=== PATIENT | male | born 1975 | race Caucasian/White ===

== ENCOUNTER 2018-10-25 10:48 | Emergency (ER) | payer OTHER ==
[~2018-10-25] VITALS: Ht 177.8 cm; Wt 108.9 kg
[2018-10-25 11:13] LABS: ABSOLUTE NEUTROPHILS 7.1 thou/uL (1.4-8.2); BASOPHILS 1.2 % (0.0-2.0); EOSINOPHILS 2.6 % (0.0-3.0); HEMATOCRIT 53.2 % (42.0-52.0); HEMOGLOBIN 18.8 gm/dL (14.0-18.0); LYMPHOCYTES 22.8 % (24.0-44.0); MCH 33.9 pg (26.0-34.0); MCHC 35.3 g/dL (28.0-37.0); MCV 95.9 fL (80.0-100.0); PLATELET COUNT 178 thou/uL (150-400); POLYS 66.4 % (36.0-66.0); RBC 5.54 mil/uL (4.50-6.00); RDW 13.5 % (10.5-14.5); WBC 10.6 thou/uL (4.0-11.0)
[2018-10-25 11:24] LABS: ANION GAP 11 mmol/L (7-16); BUN 8 mg/dL (7-18); CALCIUM 8.4 mg/dL (8.5-10.1); CHLORIDE 97 mmol/L (98-107); CO2 26 mmol/L (21-32); CREATININE 1.1 mg/dL (0.7-1.3); GLUCOSE 144 mg/dL (74-106); POTASSIUM 3.8 mmol/L (3.5-5.1); SODIUM 134 mmol/L (136-145)
[2018-10-25 11:33] LABS: MAGNESIUM 1.8 mg/dL (1.8-2.4); SGPT 70 U/L (30-65); TOTAL PROTEIN 7.4 g/dL (6.4-8.2); TROPONIN-I <0.06 ng/mL (<0.06)
[2018-10-25 11:59] LABS: SGOT 58 U/L (15-37)
[2018-10-25 12:09] LABS: URINE BILIRUBIN NEGATIVE (Negative); URINE BLOOD TRACE (Negative); URINE CLARITY CLEAR; URINE COLOR YELLOW; URINE GLUCOSE-RANDOM* NEGATIVE (Negative); URINE KETONES NEGATIVE (Negative); URINE NITRITE-REFLEX NEGATIVE (Negative); URINE PROTEIN (DIPSTICK) NEGATIVE (Negative); URINE SPECIFIC GRAVITY <= 1.005 (1.005-1.035); URINE UROBILINOGEN 0.2 E.U./dl (0.2-1.0)
[2018-10-25 12:10] LABS: URINE LEUKOCYTES-REFLEX 1+ (Negative)
[2018-10-25 12:11] LABS: AMP/METHAMP Negative (Negative); BARBITURATES Negative (Negative); BENZODIAZEPINES Negative (Negative); COCAINE Negative (Negative); METHADONE Negative (Negative); OPIATES Negative (Negative); PCP Negative (Negative)
[2018-10-25 12:28] LABS: BACTERIA-REFLEX None Seen /HPF (None Seen); CASTS None Seen /LPF (None Seen); CRYSTALS None Seen /LPF (None Seen); SQUAMOUS None Seen /LPF (0-3); URINE RBC None Seen /HPF (0-2); URINE WBC-REFLEX 0-5 Rare /HPF (0-5)
[2018-10-25 12:34] LABS: ANISOCYTOSIS SLIGHT
[2018-10-25] MEDS ORDERED: CLONIDINE0.1 PO (12:39)
[2018-10-25] MEDS ORDERED: LISINOPRIL20 MG PO (12:39)
[2018-10-25 12:42] VITALS: BP 169/106
--- NOTE | 2018-10-26 13:43 | EKG ---
[facility] [employer] [place] [address] ELECTROCARDIOGRAM REPORT Name: MACISARA GALLARDO Room #: [facility]P [id number] ������������������ Admission: 10/25/18 ������������������ Attend Phys: Discharge: 10/25/18 ������������������ Date of : 71 Report #: [id number] ����������������������������������������������������������������� [id number] THIS REPORT FOR: //name// [facility] ED Test Date: 2018-10-25 Test Time: 11:04:25 Pat Name: SARA LUX Department: Room: Gender: M [employer]: [place] : 1975 Requested By: Prabhjot Reina Order Number: [id number] MD: Tha Quesada Measurements Intervals [place] Rate: 88 P: 47 TN: 156 QRS: -4 QRSD: 111 T: 19 QT: 389 QTc: 471 Interpretive Statements Sinus rhythm Ventricular premature complex Anteroseptal infarct, old Baseline wander in lead(s) II,III,aVF No previous ECG available for comparison Electronically Signed On 10-26-2018 13:43:22 CDT by Tha Quesada [email or web address] ��������������������������������������������� <ELECTRONICALLY SIGNED> ���������������������������������������� By: Tha Quesada MD, [facility] ��������������������������������������������� 10/26/18 1343 1104 1104 Tha Quesada MD, [facility] /EPI
== END 2018-10-25 12:42 | disposition home or self-care (01) ==
LOC: ER 10:48
PROVIDERS: Emergency Medicine
DX: I10 Essential (primary) hypertension (principal); R42 Dizziness and giddiness; E03.9 Hypothyroidism, unspecified; Z91.14 Patient's other noncompliance with medication regimen; D75.1 Secondary polycythemia; F17.210 Nicotine dependence, cigarettes, uncomplicated

== ENCOUNTER → 2020-09-01 | Outpatient (CLI) | payer OTHER ==
[~2020-09-01] MED LIST: CLONIDINE0.1 PO; LISINOPRIL20 MG PO
== END ==
LOC: SJCVCIMAG 08:44
PROVIDERS: ATTEND Internal Medicine
DX: I49.1 Atrial premature depolarization (principal); R00.0 Tachycardia, unspecified; I45.10 Unspecified right bundle-branch block; I10 Essential (primary) hypertension; E78.5 Hyperlipidemia, unspecified; G47.33 Obstructive sleep apnea (adult) (pediatric); Z87.891 Personal history of nicotine dependence; E66.9 Obesity, unspecified